=== PATIENT | female | born 1955 | race Caucasian/White ===

== ENCOUNTER → 2017-11-19 08:43 | Outpatient (CLI) | payer OTHER, SELFPAY | PROVIDERS: Family Provider Internal Medicine; PCP Internal Medicine; Visit Provider Internal Medicine | DX: Z12.31 Encounter for screening mammogram for malignant neoplasm of breast (principal) | CPT/HCPCS: 77063; 77067 ==

== ENCOUNTER → 2019-12-15 13:50 | Outpatient (CLI) | payer OTHER, SELFPAY ==
--- NOTE | 2019-12-15 13:59 | BD_ITS ---
STUDY: DUAL ENERGY X-RAY ABSORPTIOMETRY / DXA REASON FOR EXAM: Female, 63 years old. 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 COMPARISON: Comparison is made with prior study dated 02/19/2012. FINDINGS: Lumbar Spine (L1-L4): g/cm2 (0.941) / T-score (-2.0) / Z-score (-0.5) Findings are suggestive of osteopenia with a high fracture risk. Left Femur Total: g/cm2 (0.776) / T-score (-1.8) / Z-score (-0.7) Left Femoral Neck: g/cm2 (0.762) / T-score (-2.0) / Z-score (-0.6) Right Femur Total: g/cm2 (0.814) / T-score (-1.5) / Z-score (-0.4) Right Femoral Neck: g/cm2 (0.781) / T-score (-1.8) / Z-score (-0.4) The T-Scores on the most recent prior examination were: Lumbar Spine (L1-L4): There has been improvement of bone density since the previous examination. Left Femur Total: which represents a worsening of 1.8%. Right Femur Total: which represents a worsening of 2%. BD/Dexa Bone Density Study IMPRESSION: The patient is considered osteopenic as outlined below according to [place] Organization (WHO) criteria with a moderate fracture risk. There has been worsening of bone density since the previous examination. Reference Information: The T-score is the number of standard deviations above or below the standard which is normal for young adults at their peak bone mineral density. The World Health Organization (WHO) interprets the T-scores as follows: Above -1 Normal bone density Between -1 and -2.5 Osteopenia Equal to / or below -2.5 Osteoporosis As a practical clinical guideline, osteopenia may be graded as follows: Mild -1 through -1.5 Moderate -1.6 through -2.0 Severe -2.1 through -2.4 The Z-score is the number of standard deviations above or below age-matched controls. A Z-score of less than -1.5 would be considered abnormal. References: 1. NIH Osteoporosis and Related Bone Diseases http://www.osteo.org 2. International Society for Clinical Densitometry http://www.iscd.org 3. National Osteoporosis Foundation http://www.nof.org Electronically Signed: Garry Sheriff, at 15:07 EDT , Service support ,
== END ==
PROVIDERS: PCP Internal Medicine; Referring Provider Internal Medicine; Visit Provider Internal Medicine
DX: Z78.0 Asymptomatic menopausal state (principal)
CPT/HCPCS: 77080

== ENCOUNTER → 2020-01-22 13:43 | Outpatient (CLI) | payer OTHER, SELFPAY ==
--- NOTE | 2020-01-22 13:55 | BI_ITS ---
MAMMOGRAPHY - BILATERAL SCREENING REASON FOR EXAM: Female, 64 years old. Routine annual screening examination. PERTINENT HISTORY: Non-contributory. Remote right excisional breast biopsy. TECHNIQUE: Digital bilateral breast lina (3D mammographic acquisition) in the CC and MLO projections. 2-D mediolateral oblique (MLO) and craniocaudad (CC) views of both breasts were obtained. CAD: Full Field Digital Mammography with Computer Added Detection was performed. COMPARISON: Comparison is made with prior study dated 11/19/2017 and 10/20/2015. FINDINGS: Breast Composition: The breasts are heterogeneously dense, which may obscure small masses. There are no dominant masses or suspicious calcifications. No other significant abnormalities are identified. There has been no significant change since the prior study. BI/SCREEN MAMM (CAD) W/LINA BILAT IMPRESSION: Stable bilateral screening mammogram. Yearly follow-up mammogram recommended. (A) ASSESSMENT CATEGORY: BIRADS Category 1: Negative. A letter regarding these results will be sent to the patient by the facility within 30 days. Approximately 10% of breast cancers are not detected by mammography. A normal mammogram should not delay biopsy of a clinically suspicious abnormality. [id number] Electronically Signed: Garry Sheriff, at 15:19 EDT , Service support ,
== END ==
PROVIDERS: PCP Internal Medicine; Referring Provider Internal Medicine; Visit Provider Internal Medicine
DX: Z12.31 Encounter for screening mammogram for malignant neoplasm of breast (principal)
CPT/HCPCS: 77063; 77067

== ENCOUNTER 2021-03-21 02:23 | Emergency (ER) | payer MEDICARE, OTHER, SELFPAY ==
[2021-03-21 02:24] VITALS: PULSE 109; RESP 20; TEMP 36.6; O2SAT 96; BMI 24.8
[2021-03-21 02:25] VITALS: BP 136/85
[2021-03-21 02:34] VITALS: O2SAT 95
--- NOTE | 2021-03-21 03:01 | ED.VIS.DYS ---
HPI History of Present Illness Chief Complaint: Cold Sx Narrative Narrative: 65-year-old female presenting for evaluation stating that her pulse oximeter was reading low at home. Patient has had Covid symptoms since . She tested positive yesterday. She is scheduled for monoclonal antibodies today. She still having low-grade fevers, chills, body aches. She is not having chest pain. She has mild dyspnea and a cough. PFSH PFSH Home Medications azithromycin 250 mg PO DAILY 03/21/21 [History Last Taken Unknown] prednisone 10 mg PO DAILY 03/21/21 [History Last Taken Unknown] Allergy/AdvReac Type Severity Reaction Status Date / Time No Known Allergies Allergy Verified 03/21/21 02:26 Surgical History H/O tubal ligation Social History Smoking Status: Never smoker ROS ROS ED Constitutional Constitutional ED: Reports chills and fever(s) Eyes Eyes: Denies blurry vision or diplopia ENT ENT ED: Reports sore throat Cardiovascular Cardiovascular: Denies chest pain or palpitations Respiratory/Chest Respiratory/Chest: Reports cough and dyspnea Gastrointestinal Gastrointestinal: Denies abdominal pain, nausea or vomiting Genitourinary Genitourinary ED: Denies dysuria or hematuria Musculoskeletal Musculoskeletal: Reports myalgias; Denies arthralgias Integumentary Denies Abrasions or rash Neurologic Neurologic: Reports headache(s); Denies paresthesias or weakness EXAM Physical Exam Const Vital Signs: 03/21/21 02:24 03/21/21 02:25 03/21/21 02:30 Temperature 97.8 F Temperature Source Temporal Pulse Rate 109 H Respiratory Rate 20 H Respiratory Effort Short of Breath Blood Pressure 136/85 H Blood Pressure Mean 102 Pulse Ox 96 Positive well nourished General Appearance ED: NAD; Negative for pallor HEENT Reports moist mucous membranes atraumatic Eyes PERRL and EOMs intact bilaterally Resp normal respiratory effort Auscultation: rales right base Cardio regular rhythm Rate: tachycardic Extremity General Extremety ED: Negative for edema or tenderness General Extremity: Negative for edema Neuro oriented x3 and CN's II-XII intact bilaterally Sensorium / Orientation: alert Motor Exam: strength 5/5 throughout Psych mental status grossly normal Thought Process: normal thought process Skin General Skin Exam: Negative for jaundice or pallor MDM MDM MDM Narrative Medical decision making narrative: Patient presenting with positive Covid test yesterday. She states her pulse oximeter was reading low at home. She was walked around the ER briskly for a long distance and did not desaturate to less than 92 per nursing. The patient admits she was walked a long distance. She felt well. Her lungs are clear with exception of some slight rales in the right lung base. She was concerned that her heart rate was a little bit fast and I checked her temperature and she was 100.5. She is not having chest pain. I have low suspicion for PE or cardiac source. Patient is offered Tylenol in the ER and states she will take this at home. She is counseled on return precautions and also encouraged to make her monoclonal antibody appointment at noon. Impression: 1. COVID-19 Discharge Plan Triage Chief Complaint: Cold Sx ED Provider: Anastacio Maldonado Dx/Rx/DC Orders Clinical Impression: COVID-19 Instructions: Coronavirus Disease 2019 (COVID-19): Caring for Yourself or Others, COVID-19: Lying in a Prone Position (Proning) Prescriptions: No Action prednisone 10 mg tablet 10 mg PO DAILY RF: 0 azithromycin 250 mg Tablet 250 mg PO DAILY RF: 0 Primary Care Provider: Saranya Sterling Referrals: Saranya Sterling DO [Primary Care Provider] - Disposition Disposition: Home, Self Care
== END 2021-03-21 03:24 | disposition home or self-care (01) ==
PROVIDERS: Emergency Provider Student in an Organized Health Care Education/Training Program; PCP Internal Medicine
DX: U07.1 COVID-19 (principal)
CPT/HCPCS: 99282

== ENCOUNTER 2021-03-21 11:57 | Outpatient (CLI) | payer MEDICARE, OTHER, SELFPAY ==
[2021-03-21 12:10] VITALS: BP 133/75; PULSE 104; RESP 20; TEMP 37.5; O2SAT 96; BMI 24.5
[2021-03-21] MEDS: 0.9% Saline Lock 10 ML Syringe IV (12:14)
[2021-03-21 12:50] VITALS: BP 105/65; PULSE 100; RESP 18; TEMP 37.7; O2SAT 97
[2021-03-21 13:48] VITALS: BP 116/66; PULSE 95; RESP 16; TEMP 37.6; O2SAT 97
== END 2021-03-21 13:50 | disposition home or self-care (01) ==
LOC: MS3OUT 11:58 → MS3 11:59
PROVIDERS: PCP Internal Medicine; Referring Provider Nurse Practitioner Adult Health; Visit Provider Nurse Practitioner Adult Health
DX: Z23 Encounter for immunization (principal); U07.1 COVID-19
CPT/HCPCS: 99282; J7050; M0243; A4216; Q0244

== ENCOUNTER → 2021-08-03 | Outpatient (CLI) | payer MEDICARE, OTHER, SELFPAY ==
--- NOTE | 2021-08-03 15:25 | BI_ITS ---
MAMMOGRAPHY - BILATERAL SCREENING REASON FOR EXAM: Female, 65 years old. Routine annual screening examination. PERTINENT HISTORY: Non-contributory. Remote right excisional breast biopsy. TECHNIQUE: Digital bilateral breast lina (3D mammographic acquisition) in the CC and MLO projections. 2-D mediolateral oblique (MLO) and craniocaudad (CC) views of both breasts were obtained. CAD: Full Field Digital Mammography with Computer Added Detection was performed. COMPARISON: Comparison is made with prior study dated 01/22/2020 and 11/19/2017. FINDINGS: Breast Composition: The breasts are heterogeneously dense, which may obscure small masses. There are no dominant masses or suspicious calcifications. No other significant abnormalities are identified. There has been no significant change since the prior study. BI/SCRN MAMM (CAD)W/LINA BILAT IMPRESSION: Stable bilateral screening mammogram. Yearly follow-up mammogram recommended. (A) ASSESSMENT CATEGORY: BIRADS Category 1: Negative. A letter regarding these results will be sent to the patient by the facility within 30 days. Approximately 10% of breast cancers are not detected by mammography. A normal mammogram should not delay biopsy of a clinically suspicious abnormality. [id number] Electronically Signed: Garry Sheriff MD at 15:56 EDT ,
== END | disposition home or self-care (01) ==
LOC: OPBI 15:23
PROVIDERS: PCP Internal Medicine; Visit Provider Internal Medicine
DX: Z12.31 Encounter for screening mammogram for malignant neoplasm of breast (principal)
CPT/HCPCS: 77063; 77067

== ENCOUNTER → 2022-01-23 | Outpatient (CLI) | payer MEDICARE, OTHER, SELFPAY ==
--- NOTE | 2022-01-23 12:20 | BD_ITS ---
STUDY: DUAL ENERGY X-RAY ABSORPTIOMETRY / DXA REASON FOR EXAM: Female, 66 years old. Post menopausal screening TECHNIQUE: Bone Mineral Density (BMD) measurements of lumbar spine and bilateral hips were obtained. COMPARISON: 2011 FINDINGS: Lumbar Spine (L1-L4): g/cm2 (0.751) / T-score (-2.7) / Z-score (-0.9) Findings are suggestive of osteoporosis with a high fracture risk. Left Femur Total: g/cm2 (0.712) / T-score (-1.9) / Z-score (-0.6) Left Femoral Neck: g/cm2 (0.628) / T-score (-2.0) / Z-score (-0.4) Right Femur Total: g/cm2 (0.739) / T-score (-1.7) / Z-score (-2.4) Right Femoral Neck: g/cm2 (0.587) / T-score (-2.4) / Z-score (-0.8) The T-Scores on the most recent prior examination were: There has been worsening of bone density since the previous examination. BD/Dexa Bone Density Study IMPRESSION: The patient is considered osteoporotic as outlined below according to [place] Organization (WHO) criteria with a high fracture risk. There has been worsening of bone density since the previous examination. Reference Information: The T-score is the number of standard deviations above or below the standard which is normal for young adults at their peak bone mineral density. The World Health Organization (WHO) interprets the T-scores as follows: Above -1 Normal bone density Between -1 and -2.5 Osteopenia Equal to / or below -2.5 Osteoporosis As a practical clinical guideline, osteopenia may be graded as follows: Mild -1 through -1.5 Moderate -1.6 through -2.0 Severe -2.1 through -2.4 The Z-score is the number of standard deviations above or below age-matched controls. A Z-score of less than -1.5 would be considered abnormal. References: 1. NIH Osteoporosis and Related Bone Diseases www osteo.org 2. International Society for Clinical Densitometry www iscd.org 3. National Osteoporosis Foundation www nof.org Electronically Signed: Ronak Spence MD at 8:05 EDT ,
== END | disposition home or self-care (01) ==
LOC: OPBD 12:13
PROVIDERS: PCP Internal Medicine; Referring Provider Internal Medicine; Visit Provider Internal Medicine
DX: Z78.0 Asymptomatic menopausal state (principal)
CPT/HCPCS: 77080

== ENCOUNTER → 2023-02-21 | Outpatient (CLI) | payer MEDICARE, OTHER, SELFPAY ==
--- NOTE | 2023-02-21 15:26 | BI_ITS ---
MAMMOGRAPHY - BILATERAL SCREENING REASON FOR EXAM: Female, 67 years old. Routine annual screening examination. PERTINENT HISTORY: Non-contributory. Remote right excisional breast biopsy. TECHNIQUE: Digital bilateral breast lina (3D mammographic acquisition) in the CC and MLO projections. 2-D mediolateral oblique (MLO) and craniocaudad (CC) views of both breasts were obtained. CAD: Full Field Digital Mammography with Computer Added Detection was performed. COMPARISON: Comparison is made with prior study August 03, 2021 and January 22, 2020. FINDINGS: Breast Composition: The breasts are heterogeneously dense, which may obscure small masses. There are no dominant masses or suspicious calcifications. Stable small benign-appearing bilateral axillary lymph nodes. No other significant abnormalities are identified. There has been no significant change since the prior study. BI/SCRN MAMM (CAD)W/LINA BILAT IMPRESSION: Stable bilateral screening mammogram. Yearly follow-up mammogram recommended. (A) ASSESSMENT CATEGORY: BIRADS Category 2: Benign. A letter regarding these results will be sent to the patient by the facility within 30 days. Approximately 10% of breast cancers are not detected by mammography. A normal mammogram should not delay biopsy of a clinically suspicious abnormality. [id number] Electronically Signed: Garry Sheriff MD at 8:37 EST ,
== END | disposition home or self-care (01) ==
LOC: OPBI 15:25
PROVIDERS: PCP Internal Medicine; Visit Provider Internal Medicine
DX: Z12.31 Encounter for screening mammogram for malignant neoplasm of breast (principal)
CPT/HCPCS: 77063; 77067

== ENCOUNTER → 2024-05-12 | Outpatient (CLI) | payer MEDICARE, OTHER, SELFPAY ==
--- NOTE | 2024-05-12 07:50 | BI_ITS ---
PROCEDURE: SCRN MAMM (CAD)W/LINA BILAT REASON FOR EXAM: F, Age 68 y/o, presents for annual screening mammography. TECHNIQUE: Bilateral screening digital breast tomosynthesis with 2D and 3D images. Computer aided detection. COMPARISON: 02/21/2023. FINDINGS: There are scattered areas of fibroglandular density. There is a mass in the upper outer left breast at anterior depth. There are no suspicious masses, grouped calcifications or architectural distortions in the right breast. BI/SCRN MAMM (CAD)W/LINA BILAT IMPRESSION: The mass in the upper-outer left breast at anterior depth requires further eval uation. Recommend diagnostic ultrasound of the left breast. BI-RADS 0: INCOMPLETE - NEED ADDITIONAL IMAGING EVALUATION. Follow-up code: Additional Views obtained/call backs The patient will be notified of the results by letter. Reading Location: [id number]
--- NOTE | 2024-05-12 07:58 | BD_ITS ---
PROCEDURE: DEXA BONE DENSITY STUDY REASON FOR EXAM: F, age 68 y/o . Patient is postmenopausal.. TECHNIQUE: DEXA scan of the lumbar spine and both hips. COMPARISON: Comparison is made with prior study dated January 23, 2022. FINDINGS: Lumbar Spine (L1-L4): g/cm2 (0.820)/T-score (-2.1)/Z-score (-0.1) findings are suggestive of osteopenia with a high fracture risk. Left Femur Total: g/cm2 (0.751)/T-score (-1.6)/Z-score (-0.2) Left Femoral Neck: g/cm2 (0.596)/T-score (-2.3)/Z-score (-0.6) Right Femur Total: g/cm2 (0.779)/T-score (-1.3)/Z-score (0.1) Right Femoral Neck: g/cm2 (0.592)/T-score (-2.3)/Z-score (-0.6) The T-Scores on the most recent prior examination were: Lumbar Spine (L1-L4): There has been improvement of bone density since the previous examination. Left Femur Total: Improvement of 5.4%. Right Femur Total: Improvement of 5.4%. BD/Dexa Bone Density Study IMPRESSION: Osteopenia. High fracture risk. Reading Location: [place] [id number]
== END | disposition home or self-care (01) ==
PROVIDERS: PCP Internal Medicine; Referring Provider Internal Medicine; Visit Provider Internal Medicine
DX: Z12.31 Encounter for screening mammogram for malignant neoplasm of breast (principal); Z78.0 Asymptomatic menopausal state
CPT/HCPCS: 77063; 77067; 77080

== ENCOUNTER → 2024-05-15 | Outpatient (CLI) | payer MEDICARE, OTHER, SELFPAY ==
--- NOTE | 2024-05-15 08:26 | US_ITS ---
PROCEDURE: BREAST LIMITED UNILATERAL REASON FOR EXAM: Abnormal left mammogram. TECHNIQUE: Targeted ultrasound of the upper-outer quadrant of the left breast. COMPARISON: Comparison is made with prior mammogram dated May 12, 2024. FINDINGS: LEFT: Left breast ultrasound was targeted to the upper-outer quadrant.. At the 12 to 1 o'clock position of the breast at 2 cm from nipple, 3 cysts are seen. The largest cyst measures 1.2 cm x 1.4 cm x 0.8 cm. There is also evidence of a 6 mm x 7 mm x 5 mm cyst at the 1 o'clock position of the breast at 3 cm from the nipple. US/Breast Limited Unilateral IMPRESSION: The mammographic abnormality corresponds to cysts. Follow-up code: Routine Follow-up Reading Location: [facility]
== END | disposition home or self-care (01) ==
LOC: OPUS 08:23
PROVIDERS: PCP Internal Medicine; Referring Provider Internal Medicine; Visit Provider Internal Medicine
DX: N63.21 Unspecified lump in the left breast, upper outer quadrant (principal)
CPT/HCPCS: 76642

== ENCOUNTER 2024-09-02 12:27 | Outpatient (RCR) | payer MEDICARE, OTHER, SELFPAY ==
--- NOTE | 2024-09-02 15:50 | HP.PTEVAL_ITS ---
Patient's Visit Information Visit Information Visit Information: HAZEL MCGOWAN is a 68 year old F referred to Physical Therapy by Dr. Saranya Sterling DO with a diagnosis of Back pain. Date of Evaluation: 09/02/24 Physical Therapist: Kalen Schroeder DPT Visit Plan Frequency: 1x/Week Duration: 6 Weeks Plan: HS stretching, REIL Neutral spine core strengthening/stability exercises I gave he exercises today. She wants to complete them on her own for 3-4 weeks then comeback to PT if needed. Subjective Subjective: Pt. is here today for her initial evaluation with diagnosis of low back pain. Pt. reports having pain for 15+ years. Pt. reports having increased pain with: lifting, prolonged walking, prolonged sitting, bending. No radicular symptoms. Sleeping is okay. Pt. does have osteopenia as well. Taking injections for this. Pt. reports recently being more activity. She reports with increased pain with moving her parents recently. Pt. feels like if she was stronger she would have much less issues. Pain Lumbar spine: Pain Intensity (Out of 10): 1 Pain Intensity Range: 0 and 3 Objective Objective: POSTURE: Pt. has slight fwrd flexed posture. Normal wt. shift. No marked lateral shift noted. PALPATION: Pt. johnson slight tenderness along B erector spinae. NEURO: normal throughout. ROM: Lumbar spine: flexion min loss increase NW, ext min loss decrease NB, SB nil loss NE bilat, Rotation nil loss phillip NE. PT. has some slight tightness in B HS, normal quad length noted. MMT: Pt. has decent BLE strength, 4+/5 bilat hip abd and extension. Core strength poor. GAIT: Pt. has decent gait pattern. Pt. is able to complete without lateral hip sway. STAIRS: normal with 1 HR. Special Tests L/S Slump test left side: Negative L/S Slump test right side: Negative L/S Left Straight Leg Raise: Negative L/S Right Straight Leg Raise: Negative Lumbar Standing: Flexion - Mechanical Response: No effect Lumbar Standing: Flexion - Symptoms During Testing: No effect Lumbar Standing: Flexion - Symptoms After Testing: No effect Lumbar Standing: Extension - Mechanical Response: No effect Lumbar Standing: Extension - Symptoms During Testing: Decreases Lumbar Standing: Extension - Symptoms After Testing: No better Balance/Special Test Scores Oswestry Low Back Score: 11 Goals Goal 1:: LTG: Pt. to be I with HEP. Goal Time Frame: 4-6 Weeks Goal 2:: STG: Pt. to have full ROM of lumbar spine without increase in symptoms. Goal Time Frame: 2-4 Weeks Goal 3:: LTG: pt. to have increased core strength to fair+. Goal Time Frame: 4-6 Weeks Goal 4:: LTG: pt. to complete all ADLs without increase in symptoms. Rehabilitation Potential Physical Therapy Diagnosis: Pt. has signs and symptoms consistent with lumbar spine symptoms. She did not have any radicular symptoms today. She does have low back pain. She has marked core weakness and need for core stability. Rehabilitation Potential: Excellent Anticipated Interventions Patient/Client Instruction: Educate patient on: Condition, Plan of Care, Risk Factors and Benefits of Fitness Program For the Purpose of:: To improve decision making, To facilitate caregiver knowledge, To improve self management, To prevent re-injury and To improve ability to perform tasks related to life management Therapeutic Exercise to Include: Strength training, Power training, Flexibilty training, Passive ROM, Active ROM, Dynamic Lumbar Stabilization and Ken Exercises For the Purpose of:: To decrease pain, To increase ROM, To improve nutrient delivery to tissue, To increase oxygenation perfusion, To improve muscle performance and motor function, To increase tolerance to activity/condition/position, To improve performance and independence with ADL's, To improve health of tissue, To decrease soft tissue restriction and To increase flexibility/ROM Text: Thank you for the opportunity to evaluate your patient. For Medicare and Medicare HMO plans, please review the plan of care and approve it. It will need to be FAXED BACK to us at [phone] for Medicare purposes. For Medicare only, by signing this I certify the plan of care. Please let me know if there are questions or concerns regarding this plan of care. Physician Signature: Date :
== END 2024-09-02 19:00 | disposition home or self-care (01) ==
LOC: PT 12:27
PROVIDERS: PCP Internal Medicine; Referring Provider Internal Medicine; Visit Provider Internal Medicine
DX: M54.50 Low back pain, unspecified (principal)
CPT/HCPCS: 97161

== ENCOUNTER → 2025-02-25 | Outpatient (CLI) | payer MEDICARE, OTHER, SELFPAY ==
[2025-02-25 12:59] LABS: Mucous, Urine 0 SEEN /hpf (<or=2+); Red Blood Cells-Urine 0 SEEN /hpf (0-5)
[2025-02-25 13:28] LABS: Hematocrit 46.9 % (37-47); Hemoglobin 14.9 g/dL (12.0-15.0); Immature Granulocytes Count 0.020 X10^3/uL (0.0-0.0); Mean Corp Hgb Conc 31.8 g/dL (32-36); Mean Corpuscular Volume 91.4 fL (81-99); Mean Platelet Vol. 11.0 fl (6.2-12.0); NRBC Flagged by Analyzer 0 % (0-5); Platelet Count 345 K/mm3 (150-450); RBC Distribution Width CV 13.2 % (11.6-14.6); RBC Distribution Width SD 44.8 fl (35.1-43.9); Red Blood Count 5.13 M/mm3 (4.2-5.4); White Blood Count 6.2 K/mm3 (4.4-11.0)
[2025-02-25 13:29] LABS: Color, Urine Yellow (Yellow); Glucose, Dipstick Normal (Normal); Ketone-Dipstick Negative (Negative); Leukocyte Esterase-Dipstick 500 /ul (Negative); Nitrite-Dipstick Negative (Negative); Occult Blood-Urine Negative /ul (Negative); Protein-Dipstick 30 mg/dl (Negative); Specific Gravity, Urine 1.015 (1.002-1.030); Urine Bilirubin Dipstick Negative (Negative)
[2025-02-25 13:35] LABS: AST(SGOT) 20 U/L (<=31); Alanine Aminotransfer ALT/SGPT 25 U/L (<=34); Albumin, Serum 4.3 g/dL (3.4-4.8); Alkaline Phosphatase 66 U/L (35-104); Anion Gap 11 (5-15); BUN 13 mg/dL (4-19); BUN/Creat Ratio 18.7 RATIO (10-20); Calcium,Total 9.3 mg/dL (7.6-11.0); Carbon Dioxide 24.7 mmol/L (21.0-32.0); Chloride 103 mmol/L (98-108); Globulin 2.6 g/dL (2.2-4.2); Glucose 109 mg/dL (70-99); Potassium 3.8 mmol/L (3.3-5.1)
[2025-02-25 13:39] LABS: Squamous Epithelial Cells - UA 0-5 SEEN /hpf (5-10)
== END | disposition home or self-care (01) ==
LOC: LABSPEC 12:51
PROVIDERS: PCP Internal Medicine; Referring Provider Internal Medicine; Visit Provider Internal Medicine
DX: M81.0 Age-related osteoporosis without current pathological fracture (principal)
CPT/HCPCS: 80053; 81001; 85025

== ENCOUNTER → 2025-03-09 | Outpatient (CLI) | payer MEDICARE, OTHER, SELFPAY ==
[2025-03-09 14:01] LABS: Mucous, Urine 0 SEEN /hpf (<or=2+); Red Blood Cells-Urine 0 SEEN /hpf (0-5)
[2025-03-09 15:15] LABS: Color, Urine Yellow (Yellow); Glucose, Dipstick Normal (Normal); Ketone-Dipstick Negative (Negative); Leukocyte Esterase-Dipstick 25 /ul (Negative); Nitrite-Dipstick Negative (Negative); Occult Blood-Urine Negative /ul (Negative); Protein-Dipstick Negative (Negative); Specific Gravity, Urine 1.010 (1.002-1.030); Urine Bilirubin Dipstick Negative (Negative)
[2025-03-09 15:22] LABS: Squamous Epithelial Cells - UA 0-5 SEEN /hpf (5-10)
== END | disposition home or self-care (01) ==
LOC: LABSPEC 14:00
PROVIDERS: PCP Internal Medicine; Referring Provider Internal Medicine; Visit Provider Internal Medicine
DX: R82.90 Unspecified abnormal findings in urine (principal)
CPT/HCPCS: 81001; 87086; 87088